=== PATIENT | female | born 1995 | race Caucasian/White ===

== ENCOUNTER 2016-12-02 02:26 | Observation (INO) | payer MEDICAID ==
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
[2016-12-02] MEDS ORDERED: Sodium Chloride 0.9% 1,000 ML IV ONE ×2 (02:39→04:34)
[2016-12-02 03:25] LABS: BASO # 0.1 K/uL (0.0-0.2); BASO % 0.7 % (0.0-2.0); EOS % 0.2 % (0.0-4.0); HEMATOCRIT 42.4 % (34.0-47.0); LYMPH # 3.5 K/uL (1.0-4.3); LYMPH % 33.3 % (20.0-40.0); MEAN CELL VOLUME 86.9 fL (81.0-99.0); MEAN CORPUSCULAR HEMOGLOBIN 29.5 pg (27.0-31.0); MEAN CORPUSCULAR HGB CONC 33.9 g/dL (33.0-37.0); MEAN PLATELET VOLUME 8.4 fL (7.2-11.7); NRBC % 0.1 % (0.0-2.0); RED CELL DISTRIBUTION WIDTH 12.8 % (11.5-14.5); WHITE BLOOD COUNT 10.6 K/uL (4.8-10.8)
[2016-12-02] MEDS ORDERED: Iodixanol 320 MG/ML 100 ML BOTTLE IV ONE (03:27)
[2016-12-02 03:28] LABS: RBC URINE < 1 /hpf (0-3); URINE BILIRUBIN NEGATIVE (NEGATIVE); URINE BLOOD NEGATIVE (NEGATIVE); URINE COLOR Yellow (YELLOW); URINE GLUCOSE (UA) NORMAL (Normal); URINE KETONE NEGATIVE (NEGATIVE); URINE LEUKOCYTE ESTERASE NEG Leu/uL (Negative); URINE PROTEIN NEGATIVE (NEGATIVE); URINE UROBILINOGEN NORMAL mg/dL (0.2-1.0)
[2016-12-02 03:29] LABS: URINE BACTERIA RARE (<OCC); WBC URINE 2 /hpf (0-5)
[2016-12-02 03:33] LABS: CHLORIDE 108 mmol/L (98-107); POTASSIUM 3.4 mmol/L (3.6-5.2); SODIUM 146 mmol/L (132-148)
[2016-12-02 03:35] LABS: GFR AFRICAN-AMERICAN > 60
[2016-12-02 03:36] LABS: ALB/GLOB RATIO 1.7 (1.0-2.1); ALKALINE PHOSPHATASE 63 U/L (38-126); ALT/SGPT 22 U/L (9-52); AST/SGOT 15 U/L (14-36); BILIRUBIN,TOTAL 0.4 mg/dL (0.2-1.3); BLOOD UREA NITROGEN 12 mg/dL (7-17); CALCIUM 8.7 mg/dl (8.6-10.4); CARBON DIOXIDE 17 mmol/L (22-30); GLUCOSE,RANDOM 100 mg/dL (65-105); TOTAL PROTEIN 7.3 g/dL (6.3-8.3)
[2016-12-02 03:37] LABS: ALCOHOL SERUM 274 mg/dl (0-10)
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
[2016-12-02] MEDS ORDERED: Lidocaine 1% Inj (20ml) ONE (04:41)
[2016-12-02] MEDS ORDERED: Lidocaine 2% w Epi 1:100,000 Inj IJ ONE (04:43)
[2016-12-02] MEDS ORDERED: Bacitracin 500 Units/gm Oint Foilpak UD ONE (04:43)
[2016-12-02] MEDS ORDERED: Ammonia 2% Inhalant ONE (04:52)
[2016-12-02 07:19] VITALS: TEMP 98
[2016-12-02 07:47] VITALS: BP 103/57; PULSE 96; RESP 20; O2SAT 98
== END 2016-12-02 07:54 | disposition home or self-care (01) ==
LOC: C.ER 02:26 → C.9OBSV 05:47
PROVIDERS: ADMIT Emergency Medicine; ATTEND Emergency Medicine
DX: F10.229 Alcohol dependence with intoxication, unspecified (principal); S70 Superficial injury of hip and thigh; X58.XXXA Exposure to other specified factors, initial encounter
CPT/HCPCS: 12001; 70450; 71260; 74177; 80053; 80320; 80324; 80345; 80346; 80349; 80353; 80358; 80361; 81001; 82948; 83992; 84703; 85025; 85610; 85730; 86850; 86900; 90471; 90715; 96360; 99285; G0378; J7040; Q9967